=== PATIENT | female | born 1985 | race Caucasian/White ===

== ENCOUNTER 2017-07-30 17:10 | Emergency (ER) | payer SELFPAY ==
[2017-07-30] MEDS ORDERED: ACETAMINOPHEN 325 MG TAB PO ONE (17:29)
--- NOTE | 2017-07-30 17:31 | Emergency Department Record ---
History of Present Illness - General Chief complaint: Extremity Problem Stated complaint: RT HAND SWELLING/PAIN Time Seen by Provider: 07/30/17 17:21 Source: Patient Mode of Arrival: Ambulatory Limitations: No limitations - History of Present Illness Initial comments: The patient is here due to R hand pain. She dropped a heavy object on it at work 2 hours ago. She is mainly having pain over the 5th MC area. MD Complaint: Extremity pain Onset/Timin -: Hour(s) Location: Right, Hand History of Same: No Radiation: None Severity scale (1-10): 7 Quality: Aching Consistency: Constant Improves with: Nothing Worsens with: Palpation, Weight bearing Associated Symptoms: Denies other symptoms - Related Data Home Medications Medication Instructions Recorded Confirmed Last Taken Albuterol Sulfate 0.083% [Neb] 3 ml IH ASDIR 07/30/17 07/30/17 Unknown Albuterol Sulfate [Ventolin Hfa] 1 puff IH DAILY 07/30/17 07/30/17 Unknown Fluticasone Propionate [Flonase] 1 mg IH DAILY 07/30/17 07/30/17 Unknown Insulin Aspart [Novolog Flexpen] 1 unit SQ ASDIR 07/30/17 07/30/17 Unknown Lisinopril [Lisinopril] 10 mg PO DAILY 07/30/17 07/30/17 Unknown Metformin HCl [Metformin HCl ER] 500 mg PO BID 07/30/17 07/30/17 Unknown Naproxen [Naproxen] 250 mg PO Q12H 07/30/17 07/30/17 Unknown Allergies Allergy/AdvReac Type Severity Reaction Status Date / Time No Known Drug Allergies Allergy Verified 07/30/17 17:23 Travel Screening - Travel/Exposure Within Last 30 Days Have you traveled within the last 30 days?: No Review of Systems Constitutional: Denies: Chills, Fever Past Medical History - SOCIAL HISTORY Smoking Status: Current every day smoker Alcohol Use: None Drug Use: None - RESPIRATORY Hx Respiratory Disorders: Yes Hx COPD: Yes - CARDIOVASCULAR Hx Cardio Disorders: Yes Hx Hypertension: Yes - NEURO Hx Neuro Disorders: No - GI Hx GI Disorders: No - Hx Genitourinary Disorders: No - ENDOCRINE Hx Endocrine Disorders: Yes Hx Diabetes: Yes (type 2) - MUSCULOSKELETAL Hx Musculoskeletal Disorders: Yes Hx Back Injury: Yes - PSYCH Hx Psych Problems: Yes Hx Anxiety: Yes Hx Depression: Yes (PTSD) - HEMATOLOGY/ONCOLOGY Hx Hematology/Oncology Disorders: No Family Medical History Any Significant Family History?: No Physical Exam - General General Appearance: Alert, Oriented x3, Cooperative, No acute distress - Head Head exam: Atraumatic, Normocephalic - Eye Eye exam: Normal appearance, PERRL - Extremities Extremities exam: Normal inspection (There is no bruising, swelling, or abrasions present.), Full ROM (The patient does have full ROM of the fingers with pain over the 5th finger with the ROM.), Tenderness (There is tenderness over the 5th MC dorsally. ) - Neurological Neurological exam: Alert. negative: Motor sensory deficit Course Vital Signs 07/30/17 17:18 Temperature 97.5 F L Pulse Rate 106 H Respiratory 20 Rate Blood Pressure 125/91 Pulse Ox 98 - Reevaluation(s) Reevaluation #1: I did discuss the neg xray with the patient and the need for F/U if not better. 07/30/17 18:03 Medical Decision Making - Data Complexity MDM Data: X-Ray Ordered and/or Reviewed - Radiology Data Radiology results: Report reviewed (R Hand xray: Neg.) Disposition Disposition: Discharge Clinical Impression: Contusion of hand Qualifiers: Encounter type: initial encounter Laterality: right Qualified Code(s): S60.221A - Contusion of right hand, initial encounter Disposition: Home, Self-Care Condition: (2) Stable Instructions: Contusion in Adults (ED) Additional Instructions: Please use ice to the R hand today when possible. Take Tylenol for pain. Use the work restrictions for 3 days. Please see your Occupational Health provider or family doctor if not better in 3 days. Forms: Patient Portal Access Time of Disposition: 18:05 Quality - Quality Measures Quality Measures: N/A - Blood Pressure Screening View Details: Yes Does Patient Have Any of the Following: No Blood Pressure Classification: Hypertensive Reading Systolic Measurement: 125 Diastolic Measurement: 91 Screening for High Blood Pressure: < First Hypertensive BP, F/U Documented > [ G8950] First Hypertensive Follow-up Interventions: Referral to alternative/primary care provider.
--- NOTE | 2017-07-31 13:43 | RADIOLOGY REPORT ---
EXAM: RIGHT HAND HISTORY: RIGHT HAND SWELLING, PAIN. TECHNIQUE: Three views of the right hand were obtained. FINDINGS: There is no evidence of fracture or dislocation. The bone density is normal. No foreign bodies are seen. IMPRESSION: NEGATIVE RIGHT HAND EXAMINATION. JOB NUMBER: [id number] MTDD
== END 2017-07-30 18:24 | disposition home or self-care (01) ==
LOC: ER 17:10
DX: S60.221A Contusion of right hand, initial encounter (principal); I10 Essential (primary) hypertension; F17.210 Nicotine dependence, cigarettes, uncomplicated; W22.8XXA Striking against or struck by other objects, initial encounter; Y99.0 Civilian activity done for income or pay
CPT/HCPCS: 99283

== ENCOUNTER 2017-10-30 11:04 | Emergency (ER) | payer MEDICAID ==
--- NOTE | 2017-10-30 11:22 | Emergency Department Record ---
History of Present Illness - General Chief Complaint: Abdominal Pain Stated Complaint: SOMETHING IS WRONG WITH MY GB Time Seen by Provider: 10/30/17 11:22 Source: Patient Mode of Arrival: Ambulatory Limitations: No limitations - History of Present Illness Initial Comments: Pt with 3 days or RUQ to right flank pains. Sharp and 6-7 of 10. Associated with increased flatulence, no fever or vomiting. Hx DM on insulin for 6 months. No diarrhea, no lower abd pains, no urinary freq/urgency/dysuria. No cough or HODAN. No prior evaluation for this complaint. Hx of a "fatty liver". MD Complaint: Abdominal pain, Flank pain Onset/Timin -: Days(s) Location: RUQ Radiation: None Migration to: No migration Severity: Moderate Severity scale (1-10): 6 Quality: Sharp Consistency: Constant Improves With: Nothing Worsens With: Nothing Associated Symptoms: Constipation - Related Data LMP Date: 10/21/17 Home Medications Medication Instructions Recorded Confirmed Last Taken Insulin Glargine,Hum.rec.anlog 26 unit SQ QHS 10/30/17 10/30/17 Unknown [Janetagllev Blount U-100] Allergies Allergy/AdvReac Type Severity Reaction Status Date / Time iodine Allergy RASH Verified 10/30/17 11:14 latex Allergy RASH Verified 10/30/17 11:14 Travel Screening - Travel/Exposure Within Last 30 Days Have you traveled within the last 30 days?: No Review of Systems Constitutional: Denies: Chills, Fever Eyes: Denies: Photophobia, Vision change ENT: Denies: Congestion Respiratory: Denies: Cough, Dyspnea Cardiovascular: Denies: Arrhythmia, Chest pain Endocrine: Denies: Fatigue Gastrointestinal: Reports: As per HPI, Abdominal pain Genitourinary: Denies: Abnormal menses, Discharge, Dysuria, Urgency Musculoskeletal: Denies: Arthralgia Skin: Denies: Bruising Neurological: Denies: Abnormal gait Psychiatric: Denies: Anxiety Past Medical History - SOCIAL HISTORY Smoking Status: Former smoker Alcohol Use: None Drug Use: None - RESPIRATORY Hx Respiratory Disorders: Yes Hx COPD: Yes - CARDIOVASCULAR Hx Cardio Disorders: Yes Hx Hypertension: Yes - NEURO Hx Neuro Disorders: No - GI Hx GI Disorders: No Hx Liver Disease: Yes (fatty liver) - Hx Genitourinary Disorders: No - ENDOCRINE Hx Endocrine Disorders: Yes Hx Diabetes: Yes (type 2) - MUSCULOSKELETAL Hx Musculoskeletal Disorders: Yes Hx Back Injury: Yes - PSYCH Hx Psych Problems: Yes Hx Anxiety: Yes Hx Depression: Yes (PTSD) - HEMATOLOGY/ONCOLOGY Hx Hematology/Oncology Disorders: No Family Medical History Any Significant Family History?: No Physical Exam - General General Appearance: Alert, Oriented x3, Cooperative, Mild distress Limitations: No limitations - Head Head exam: Atraumatic - Eye Eye exam: Normal appearance, PERRL, EOMI. negative: Conjunctival injection, Nystagmus - ENT ENT exam: Normal exam, Mucous membranes moist, Normal external ear exam, Normal orophraynx Throat exam: Normal inspection - Neck Neck exam: Normal inspection. negative: Thyromegaly - Respiratory Respiratory exam: Normal lung sounds bilaterally. negative: Wheezes - Cardiovascular Cardiovascular Exam: Regular rate, Normal rhythm - GI/Abdominal GI/Abdominal exam: Soft, Normal bowel sounds, Tenderness. negative: Guarding, Rebound - Rectal Rectal exam: Deferred - exam: Deferred - Extremities Extremities exam: Normal inspection - Back Back exam: Reports: Normal inspection. Denies: Paraspinal tenderness - Neurological Neurological exam: Alert, Normal gait, Oriented X3 - Psychiatric Psychiatric exam: Normal affect, Normal mood - Skin Skin exam: Normal color Course Vital Signs 10/30/17 11:10 Temperature 98.4 F Pulse Rate 110 H Respiratory 16 Rate Blood Pressure 133/87 Pulse Ox 97 - Reevaluation(s) Reevaluation #1: 10/30/17 12:30 Pt with slight improved pain with Toradol. Labs reviewed. No evidence acute GB issue. Glucose elevated but "normal range" per patient. Discussed need for follow up with PMD regarding tighter glucose control and further eval of RUQ pain and liver enzyme elevation. She understands and agrees. Medical Decision Making - Lab Data Result diagrams: 10/30/17 11:35 10/30/17 11:35 Disposition Disposition: Discharge Clinical Impression: Abdominal pain, Diabetes Disposition: Home, Self-Care Condition: (2) Stable Instructions: Abdominal Pain (ED) Additional Instructions: See your family doctor for further evaluation of your abdominal pains. Discuss your diabetes and tighter control. Return to the ED as needed. Forms: Patient Portal Access Quality - Quality Measures Quality Measures: N/A - Blood Pressure Screening Does Patient Have Any of the Following: No Blood Pressure Classification: Pre-Hypertensive BP Reading Systolic Measurement: 133 Diastolic Measurement: 87 Screening for High Blood Pressure: < Pre-Hypertensive BP, F/U Documented > [ G8950] Pre-Hypertensive Follow-up Interventions: Lifestyle modifications. Lifestyle Modification: Dietary Sodium Restriction
[2017-10-30 11:45] LABS: BASO % 0.6 % (0-6); GRAN % 60.4 % (47-80); HEMATOCRIT 39.1 % (35.0-47.0); HEMOGLOBIN 13.2 gm/dl (11.6-16.0); LYMPH % 29.6 % (16-45); MEAN CORPUSCULAR HEMOGLOBIN 31.1 pg (27-33); MEAN CORPUSCULAR HGB CONC 33.8 g/dl (32-36); MONO % 6.4 % (0-9); PLATELET COUNT 261 K/uL (130-400); RED BLOOD COUNT 4.25 M/uL (3.80-5.40); RED CELL DISTRIBUTION WIDTH 12.6 % (11.5-14.5); URINE APPEARANCE CLEAR; URINE BILIRUBIN NEGATIVE (NEGATIVE); URINE BLOOD NEGATIVE (NEGATIVE); URINE COLOR YELLOW; URINE KETONE TRACE (NEGATIVE); URINE LEUKOCYTE ESTERASE NEGATIVE (NEGATIVE); URINE NITRITE NEGATIVE (NEGATIVE); URINE PROTEIN NEGATIVE (NEGATIVE); URINE UROBILINOGEN 0.2 E.U./dL (0.20 - 1.00); WHITE BLOOD COUNT W/O DIFF 8.6 K/uL (4.2-12.2)
[2017-10-30] MEDS: KETOROLAC 30 MG/ML VIAL IVP ONE (11:45)
[2017-10-30] MEDS: 0.9% SODIUM CHLORIDE 250ML BAG IV ONE (11:45)
[2017-10-30 11:47] LABS: URINE GLUCOSE (UA) >=1000 mg/dL (NEGATIVE)
[2017-10-30 11:58] LABS: BLOOD UREA NITROGEN 16 mg/dL (6-20); CREATININE 0.5 mg/dL (0.5-0.9); EST GLOMERULAR FILTRATION RATE > 60 mL/min; TOTAL PROTEIN 6.3 g/dL (6.6-8.7)
[2017-10-30 12:00] LABS: GLUCOSE,RANDOM 302 mg/dL (74-109)
[2017-10-30 12:03] LABS: ALB/GLOB RATIO 1.6 (1.1-1.8); ALBUMIN 3.9 g/dL (4.0-5.0); ALKALINE PHOSPHATASE 60 U/L (35-104); ALT/SGPT 130 U/L (<33); AST/SGOT 52 U/L (10.0-35.0)
--- NOTE | 2017-10-31 10:16 | ULTRASOUND REPORT ---
EXAM: ULTRASOUND OF THE ABDOMEN HISTORY: UPPER QUADRANT PAIN. TECHNIQUE: Sonographic evaluation of the abdomen was performed using deal scale imaging. FINDINGS: There is fatty infiltration of the liver. There is sludge present within the gallbladder. No ductal dilatation. The common bile duct measures 2 mm. The pancreas and spleen are normal. The kidneys are normal in size without hydronephrosis or nephrolithiasis. The abdominal aorta and inferior vena cava are patent. IMPRESSION: 1. FATTY INFILTRATION OF THE LIVER. 2. SLUDGE PRESENT WITHIN THE GALLBLADDER. NO DUCTAL DILATATION. JOB NUMBER: [id number] [facility]
== END 2017-10-30 12:58 | disposition home or self-care (01) ==
LOC: ER 11:04
DX: R10.11 Right upper quadrant pain (principal); I10 Essential (primary) hypertension; Z87.891 Personal history of nicotine dependence; E11.9 Type 2 diabetes mellitus without complications; Z79.4 Long term (current) use of insulin
CPT/HCPCS: 76705; 80053; 81003; 81025; 85025; 99284; J1885